=== PATIENT | male | born 1960 | race Two or more races ===

== ENCOUNTER 2020-02-19 13:15 | Inpatient (IN) | payer MEDICAID, OTHER ==
[~2020-02-19] VITALS: Ht 175.3 cm; Wt 58.4 kg
[2020-02-19] MEDS ORDERED: SODIUM CHLORIDE 0.9% 500 ML IVB ONE (13:20)
[2020-02-19] MEDS ORDERED: MORPHINE SULFATE 4 MG/ML SYR/VIAL IV ONE (13:30)
[2020-02-19] MEDS ORDERED: ONDANSETRON HCL 4 MG/2 ML VIAL IV ONE (13:30)
[2020-02-19 14:09] LABS: Basophils # (auto) 0 10 ^3/uL (0-0.2); Basophils % (auto) 0.3 % (0.0-2.0); Eosinophils # (auto) 0 10 ^3/uL (0-0.8); Eosinophils % (auto) 0.1 % (0.0-7.0); Hematocrit 50.9 % (41.0-53.0); Hemoglobin 17.3 g/dL (13.5-17.5); Lymphocytes # (auto) 0.6 10 ^3/uL (0.4-5.4); Lymphocytes % (auto) 19.1 % (10.0-50.0); Mean Corpuscular Hgb Conc. 33.9 g/dL (32.0-36.0); Mean Corpuscular Volume 94.2 fL (80.0-100.0); Monocytes # (auto) 0.6 10 ^3/uL (0-1.3); Monocytes % (auto) 17.9 % (0.0-12.0); Neutrophils % (auto) 62.6 % (37.0-80.0); Platelet Count (auto) 377 10^3/uL (140-450); Red Cell Distribution Width 12.9 % (11.8-14.3); White Blood Cell 3.2 10^3/uL (4.4-10.8)
[2020-02-19 14:29] LABS: Albumin 3.9 g/dL (3.4-5.0); Calcium 9.3 mg/dL (8.5-10.1); INR 1.03 (0.9-1.15); Potassium 4.9 mmol/L (3.5-5.1)
[2020-02-19 14:32] LABS: BUN/Creatinine Ratio 29.7; Bilirubin, Total 1.2 mg/dL (0.2-1.0)
[2020-02-19] MEDS ORDERED: IOHEXOL 300 MG/ML 100ML BOTTLE IJ ONE (14:51)
[2020-02-19] MEDS ORDERED: PIPERACILLIN-TAZOB 3.375GM 100 ML IV ONE (15:45)
[2020-02-19] MEDS ORDERED: metroNIDAZOLE 500MG/100ML 100 ML IV ONE (15:45)
[2020-02-19] MEDS ORDERED: NITROGLYCERIN 0.4 MG SL TAB SL PRN (18:15)
[2020-02-19] MEDS ORDERED: ACETAMINOPHEN 325 MG TAB PO PRN (18:15)
[2020-02-19] MEDS ORDERED: MORPHINE SULF INJ 2 MG/ML SYRINGE 1ML IV PRN (18:15)
[2020-02-19] MEDS ORDERED: ONDANSETRON HCL 4 MG/2 ML VIAL IV PRN (18:15)
[2020-02-19] MEDS ORDERED: HYDROcodone-ACET 5/325MG TAB PO PRN (18:15)
[2020-02-19] MEDS ORDERED: METOPROLOL TARTRATE 1MG/1ML-5ML VIAL IV ONE (18:15)
[2020-02-19] MEDS ORDERED: LABETALOL HCL 5 MG/ML 4ML SYRINGE IV PRN (18:15)
[2020-02-19] MEDS ORDERED: METOPROLOL TARTRATE 1MG/1ML-5ML VIAL IV PRN (18:15)
[2020-02-19] MEDS: SODIUM CHLORIDE 0.9% 1,000 ML IV SCH ×3 (18:43→22:45)
[2020-02-19 19:54] LABS: Lactic Acid w/Reflex 2.9 mmol/L (0.4-2.0)
[2020-02-19 20:26] VITALS: BP 175/110
--- NOTE | 2020-02-19 20:26 | NUR ---
Pt brought to [facility], room 291B. No s/s of SOB. Pt complains of severe abdominal pain. Will administer pain medication as prescribed. Pt oriented to unit, bed in lowest position, bed rails raised x2, call light within reach. Pt educated on POC, pt verbalized understanding. Will continue to monitor Q1h and PRN.
[2020-02-19] MEDS: MORPHINE SULF INJ 2 MG/ML SYRINGE 1ML IV PRN (21:46)
[2020-02-19 22:00] VITALS: BP 175/110
[2020-02-19] MEDS: cloNIDine HCL 0.1 MG TAB PO PRN (23:28)
--- NOTE | 2020-02-20 00:47 | NUR ---
NG Placement After two attempts by other nurses, NG tube placed by KIMBERLY Dyer. Size 14 tube, measuring at 68 at the left nare. Pt tolerated fairly well. Portable CXR ordered for placement confirmation. Will continue to monitor and carry out any new orders received.
[2020-02-20] MEDS: HYDROmorphone HCL 2 MG/ML VL IV PRN ×4 (01:03→18:47)
[2020-02-20] MEDS: LABETALOL HCL 5 MG/ML 4ML SYRINGE IV PRN ×2 (02:48→09:17)
[2020-02-20] MEDS: MORPHINE SULF INJ 2 MG/ML SYRINGE 1ML IV PRN ×2 (04:19→08:37)
[2020-02-20 05:00] VITALS: BP 184/112
--- NOTE | 2020-02-20 05:10 | NUR ---
Hospitalist paged for high BP and orders. Awaiting call back.
--- NOTE | 2020-02-20 06:07 | NUR ---
Pt own meds Pt states that he takes Trazadone, Attivan, Zoloft, Risperidone, Flomax. Pt states he is does not know the dosages. Addendum: 02/20/20 at 0610 by Fabiana Oliva RN RN No phone number provided in order to verify medications.
--- NOTE | 2020-02-20 07:30 | NUR ---
Opening Shift Note Assumed care of patient, who is alert and oriented x4. Respirations are even and unlabored. No S/S of distress/SOB. Patient is reporting 10/10 abdominal pain. Will medicate per MD orders. NGT to L nares is set to LCS. Noted dark green fluid in suction canister. Bed is low, locked with 2x side rails up. Call light is within reach. Instructed on POC and to call for assist PRN, will continue to monitor for changes Q1hr and PRN.
[2020-02-20 08:51] LABS: Urine WBC None Seen /hpf (0 - 3)
[2020-02-20 08:55] LABS: Urine Bacteria NONE SEEN /hpf (None Seen); Urine Blood Negative /uL (Negative)
[2020-02-20 09:00] VITALS: BP 187/118
[2020-02-20 09:29] LABS: Amphetamine Screen, Urine POSITIVE (NEGATIVE); Barbiturate Scree,Urine NEGATIVE (NEGATIVE); Benzodiazephine Screen, Urine NEGATIVE (NEGATIVE); Cannabinoid Screen, Urine NEGATIVE (NEGATIVE); Cocaine Screen, Urine NEGATIVE (NEGATIVE); Opiate Scree,Urine POSITIVE (NEGATIVE); Phencyclidine Screen, Urine NEGATIVE (NEGATIVE)
--- NOTE | 2020-02-20 09:45 | NUR ---
Blood pressure BP:187/118 HR:94 Administered Labetalol PRN per MD orders. Patient is asymptomatic at this time. Patient is only c/o abdominal pain secondary to SBO. Received new orders from Dr. Peterson to upgrade patient to [facility] for Labetalol drip, echocardiogram and kidney doppler. Will carry out orders. Patient to be transferred to [facility]. Will continue to monitor.
[2020-02-20] MEDS: SODIUM CHLORIDE 0.9% 1,000 ML IV SCH ×2 (09:52→20:59)
[2020-02-20] MEDS ORDERED: LABETALOL INJECTION 250 MG in SODIUM CHL 0.9% 200 ML IV ONE (10:15)
[2020-02-20 10:28] LABS: Basophils # (auto) 0 10 ^3/uL (0-0.2); Basophils % (auto) 0.2 % (0.0-2.0); Eosinophils # (auto) 0 10 ^3/uL (0-0.8); Hematocrit 46.6 % (41.0-53.0); Hemoglobin 15.8 g/dL (13.5-17.5); Lymphocytes # (auto) 0.2 10 ^3/uL (0.4-5.4); Lymphocytes % (auto) 6.4 % (10.0-50.0); Mean Corpuscular Hemoglobin 32.3 pg (28.0-32.0); Mean Corpuscular Hgb Conc. 33.9 g/dL (32.0-36.0); Mean Corpuscular Volume 95.1 fL (80.0-100.0); Monocytes # (auto) 0.3 10 ^3/uL (0-1.3); Monocytes % (auto) 9.5 % (0.0-12.0); Neutrophils # (auto) 2.9 10 ^3/uL (1.6-8.6); Neutrophils % (auto) 83.9 % (37.0-80.0); Platelet Count (auto) 337 10^3/uL (140-450); Red Cell Distribution Width 12.8 % (11.8-14.3); White Blood Cell 3.5 10^3/uL (4.4-10.8)
[2020-02-20 10:47] LABS: Albumin 3.7 g/dL (3.4-5.0); Calcium 9.2 mg/dL (8.5-10.1); Magnesium 2.6 mg/dL (1.6-2.6)
[2020-02-20 10:52] LABS: BUN/Creatinine Ratio 32.1; Bilirubin, Total 1.1 mg/dL (0.2-1.0); Phosphorus 4.3 mg/dL (2.5-4.90); Total Protein 8.6 g/dL (6.4-8.2)
[2020-02-20 11:22] LABS: Lactic Acid w/Reflex 2.4 mmol/L (0.4-2.0)
[2020-02-20] MEDS: cloNIDine HCL 0.1 MG TAB PO PRN (12:51)
[2020-02-20 13:00] VITALS: BP 179/114
[2020-02-20 13:28] VITALS: BP 150/114
--- NOTE | 2020-02-20 14:35 | NUR ---
Spoke to Kirill Joel MD on patients current status. New orders received. Read back and verified. Patient to have small bowl series with gastrografin tomorrow. (SEE ORDERS). Will continue to monitor.
--- NOTE | 2020-02-20 14:43 | NUR ---
Kirill Guerrero rounding Updating patient on POC.
--- NOTE | 2020-02-20 15:43 | NUR ---
Dr. Peterson rounding Updating patient on POC. New orders received for Metoprolol IV and Clonidine patch (see orders). Holding Labetalol drip/[facility] transfer at this time.
[2020-02-20 15:45] VITALS: BP 152/115
[2020-02-20] MEDS ORDERED: METOPROLOL TARTRATE 1MG/1ML-5ML VIAL IV PRN ×2 (15:45)
[2020-02-20 16:44] VITALS: BP 147/112
[2020-02-20] MEDS ORDERED: cloNIDine 0.2 mg/24hr 7DAY PATCH TD SCH (17:00)
--- NOTE | 2020-02-20 19:30 | NUR ---
Opening Shift Note Assumed care of patient, patient asleep / resting at this time. No S/S of distress/SOB or pain. Will continue to monitor for changes Q1hr and PRN.
--- NOTE | 2020-02-20 21:30 | NUR ---
Patient BP is 101/69 and HR is 107. Patient is resting comfortably with no c/o distress or pain at this time. Will continue to monitor.
--- NOTE | 2020-02-20 23:25 | NUR ---
Patient attempted to have BM on bedside commode. No BM noted but NG tube accidentally removed. Will attempt NG at a later time.
[2020-02-21] VITALS (38 sets, daily range): BP systolic 57–152; BP diastolic 27–88
--- NOTE | 2020-02-21 00:19 | NUR ---
NGT successfully replaced. There is still dark liquid output. Patient on LCS as ordered. Patient tolerated well.
--- NOTE | 2020-02-21 00:44 | NUR ---
NGT output: beginning of shift 300ml corrina. After reinserting NGT it was at 600ml on LCS.
--- NOTE | 2020-02-21 00:45 | NUR ---
Patient stated that he was passing gas and wanted to sit on a commode. Patient assisted to commode with standby assistance. Upon returning patient was slumped over and difficult to arouse. Patient immediately placed back on bed. Patient was still very slow to arouse and VS taken immediately. Initial BP reading was 44/28. Patient respirations also in the 30's and in respiratory distress. Called for Code assist.
[2020-02-21] MEDS ORDERED: LORazepam 2MG/ML-1ML VIAL ONE (01:10)
[2020-02-21] MEDS ORDERED: FLUMAZENIL 0.1 MG/ML INJ 10ML MDV IV ONE (01:43)
--- NOTE | 2020-02-21 02:20 | NUR ---
Patient transferred to ICU/CL Bed 204 and report given to Dorina HARRIS.
--- NOTE | 2020-02-21 02:30 | NUR ---
ICU transfer from room 291: Patient is A&Ox1-2; confusion present. Currently on 10 L O2 via simple mask; BP currently SBP 50s; NS bolus running at this time per code assist hospitalist orders from med/surg unit. IV 22 g in right hand. New IV started in left ankle 22 g. Skin intact; generalized bruising present. Pupils are nonreactive to light/ 3mm size; facial symmetry present with equal strength BUE/BLE. Currently bedrest. NGT attached to LIS: dark red output new per previous RN when called for update. BS for 132; no output; patient refusing daíz catheter at this time.
[2020-02-21] MEDS ORDERED: NOREPINEPHRINE 8 MG/250ML KIT 250 ML IV ONE (02:42)
[2020-02-21] MEDS: NOREPINEPHRINE 8 MG/250ML KIT 250 ML IV SCH ×3 (03:00→13:29)
[2020-02-21] MEDS: SODIUM CHLORIDE 0.9% 1,000 ML IV SCH (03:30)
[2020-02-21 03:57] LABS: Hemoglobin 12.5 g/dL (13.5-17.5)
[2020-02-21 04:01] LABS: Basophils # (auto) 0 10 ^3/uL (0-0.2); Basophils % (auto) 0.2 % (0.0-2.0); Eosinophils # (auto) 0 10 ^3/uL (0-0.8); Eosinophils % (auto) 0.1 % (0.0-7.0); Hematocrit 37.8 % (41.0-53.0); Lymphocytes # (auto) 0.3 10 ^3/uL (0.4-5.4); Lymphocytes % (auto) 9.7 % (10.0-50.0); Mean Corpuscular Hemoglobin 31.8 pg (28.0-32.0); Mean Corpuscular Hgb Conc. 33.1 g/dL (32.0-36.0); Mean Corpuscular Volume 96.1 fL (80.0-100.0); Monocytes # (auto) 0.1 10 ^3/uL (0-1.3); Monocytes % (auto) 3.5 % (0.0-12.0); Neutrophils # (auto) 2.4 10 ^3/uL (1.6-8.6); Neutrophils % (auto) 86.5 % (37.0-80.0); Nucleated Red Blood Cells % 0.1 %; Platelet Count (auto) 258 10^3/uL (140-450); Red Blood Cells 3.93 10^6/uL (4.5-5.90); Red Cell Distribution Width 12.9 % (11.8-14.3); White Blood Cell 2.8 10^3/uL (4.4-10.8)
[2020-02-21] MEDS: HYDROmorphone HCL 2 MG/ML VL IV PRN (04:09)
--- NOTE | 2020-02-21 04:09 | NUR ---
PAIN: Pt very restless, moaning. Pt c/o pain in abdomen at level 10/10. Pt requesting pain medication. Pt medicated w/ Dilaudid 0.5mg slow IVP as per order. To continue to monitor pt.
[2020-02-21 04:15] LABS: BUN/Creatinine Ratio 21.5; Calcium 7.4 mg/dL (8.5-10.1); Potassium 4.4 mmol/L (3.5-5.1)
[2020-02-21] MEDS ORDERED: EPINEPHrine HCL 250 ML IV ONE (06:16)
[2020-02-21] MEDS ORDERED: ROCURONIUM 10MG/ML 10ML VIAL IV ONE ×5 (06:25→16:50)
[2020-02-21] MEDS ORDERED: ETOMIDATE (2MG/ML) 20ML VIAL IV ONE (06:25)
[2020-02-21] MEDS ORDERED: SUCCINYLCHOLINE CHLORIDE 20 MG/ML 10ML VIAL IV ONE (06:25)
--- NOTE | 2020-02-21 06:30 | NUR ---
Emergent Intubation: Patient ALOC increased; unresponsive to painful stimuli; RR in 40s-50s; unable to obtain a BP; HR in 120s; unable to obtain oxygen saturation. RT unable to obtain STAT ABG related to low BP. Dr. Infante paged by airworthiness inspector for emergent intubation for airway protection. 20 ml of Etomidate given for intubation prep. ET size 8.0/23 @ lip inserted. Vent settings: AC rate 16, vT 500, PEEP 5, FiO2 set at 100% until oxygen saturation obtain. Right IJ TLC also inserted for hemodynamic drips. Levophed maxed at 30; Epinephrine maxed; new orders received for Zac per protocol/2 units of PRBCs & 1 unit of FFP for active bleeding/ Hetastarch 500 ml/ 1 liter bolus (for total of 3 L since transfer)/ protonix drip per protocol/ STAT type and screen. Farooq inserted per ICU protocol 16 F with 10 ml balloon. NGT still has dark red output total since 0200 is 200 ml.
[2020-02-21] MEDS ORDERED: EPINEPHrine HCL 250 ML IV SCH (06:36)
[2020-02-21] MEDS: MIDAZOLAM DRIP 50 mg/50mL 50 ML IV SCH ×3 (06:36→15:24)
[2020-02-21] MEDS: PANTOPRAZOLE 40mg/50ML NS AE 50 ML IV SCH ×2 (06:45→10:04)
[2020-02-21] MEDS: PHENYLEPHRINE IV 500 ML IV ONE ×2 (06:45→06:52)
[2020-02-21] MEDS ORDERED: HETASTARCH 500 ML IV ONE (06:45)
[2020-02-21] MEDS ORDERED: PANTOPRAZOLE 40mg/50ML NS AE 50 ML IV ONE (07:13)
[2020-02-21] MEDS ORDERED: VASOPRESSIN 50 UNITS in D5W 5% 247.5 ML IV SCH ×2 (08:00→13:00)
[2020-02-21] MEDS: PHENYLEPHRINE IV 250 ML IV SCH ×2 (08:13→08:55)
[2020-02-21] MEDS ORDERED: SODIUM CHLORIDE 0.9% 3,000 ML IV ONE (08:15)
[2020-02-21 08:42] LABS: INR 1.3 (0.9-1.15); Partial Thromboplastin Time 29.3 sec (23.64-32.05)
--- NOTE | 2020-02-21 10:57 | NUR ---
Leslyid specimen obtained and carried to the lab by the RN.
--- NOTE | 2020-02-21 10:59 | NUR ---
Xray at bedside for STAT KUB.
[2020-02-21] MEDS ORDERED: GASTROGRAFIN 120 ML SOL ONE (11:06)
--- NOTE | 2020-02-21 11:15 | NUR ---
Dr. Peterson at bedside.
[2020-02-21] MEDS: PHENYLEPHRINE INJ 40 MG in SODIUM CHL 0.9% 250 ML IV SCH ×2 (11:32→15:23)
--- NOTE | 2020-02-21 11:34 | NUR ---
Respirations are in 30s-40s; unable to obtain a BP; HR in 130s. Dr. Peterson, made aware. Orders received to increase patient's Versed gtt to 15mg/hr and to start patient on Zac double concentration per protocol.
[2020-02-21 11:58] LABS: Hemoglobin 11.4 g/dL (13.5-17.5); Platelet Count (auto) 233 10^3/uL (140-450)
[2020-02-21 11:59] LABS: Hematocrit 34.4 % (41.0-53.0); Mean Corpuscular Hemoglobin 32.3 pg (28.0-32.0); Mean Corpuscular Hgb Conc. 33.2 g/dL (32.0-36.0); Mean Corpuscular Volume 97.3 fL (80.0-100.0); Red Blood Cells 3.54 10^6/uL (4.5-5.90); Red Cell Distribution Width 13.2 % (11.8-14.3)
[2020-02-21 12:03] LABS: White Blood Cell 1.6 10^3/uL (4.4-10.8)
[2020-02-21 12:09] LABS: Albumin 1.6 g/dL (3.4-5.0); Calcium 6.4 mg/dL (8.5-10.1)
[2020-02-21 12:13] LABS: Lactic Acid w/Reflex 5.5 mmol/L (0.4-2.0)
[2020-02-21 12:17] LABS: BUN/Creatinine Ratio 18.1; Bilirubin, Total 0.6 mg/dL (0.2-1.0); Total Protein 4.2 g/dL (6.4-8.2)
--- NOTE | 2020-02-21 12:43 | NUR ---
Dr. Medina at bedside.
--- NOTE | 2020-02-21 12:47 | NUR ---
Unable to obtain BP. Dr. Medina at bedside, orders received to increase Levophed to the max dose and start patient on Vasopressin.
[2020-02-21 12:54] LABS: Basophils % (manual) 0 (0.0-2.0); Blast Cells 0; Eosinophils % (manual) 0 (0-7); Promyelocytes % 0; Reactive Lymphocytes 0
[2020-02-21 13:12] LABS: Band Neutrophils % (manual) 18; Lymphocytes % (manual) 28 (10.0-50.0); Metamyelocytes % 20; Monocytes % (manual) 14 (0-12); Myelocytes % 13
--- NOTE | 2020-02-21 13:15 | NUR ---
Dr. Guerrero at bedside.
--- NOTE | 2020-02-21 13:39 | NUR ---
Dr. Evans at bedside for A line insertion.
[2020-02-21] MEDS ORDERED: MORPHINE SULFATE ONE (14:25)
[2020-02-21] MEDS ORDERED: MIDAZOLAM HCL 1MG/1ML-2 ML VIAL ONE (14:25)
[2020-02-21] MEDS ORDERED: fentaNYL CITRATE 10 ML ONE (14:25)
[2020-02-21] MEDS ORDERED: fentaNYL CITRATE 100 MCG/2 ML VL ONE (14:25)
[2020-02-21] MEDS ORDERED: EPINEPHrine HCL 1 MG/10 ML SYRG ONE (14:27)
--- NOTE | 2020-02-21 14:28 | NUR ---
Dr. Sr at bedside.
[2020-02-21] MEDS ORDERED: CALCIUM CHLOR(10%) 100MG/ML 10ML SYRINGE IV ONE (14:29)
--- NOTE | 2020-02-21 14:35 | NUR ---
First unit of PRBC infusing per protocol.
--- NOTE | 2020-02-21 15:09 | NUR ---
OR team at bedside.
--- NOTE | 2020-02-21 15:17 | NUR ---
Patient transported to the OR with the OR team.
[2020-02-21] MEDS ORDERED: ceFAZolin 1GM VL ONE ×3 (16:15→16:54)
[2020-02-21] MEDS ORDERED: levoFLOXacin 500MG 100 ML IV ONE (16:17)
[2020-02-21] MEDS ORDERED: cefTRIAXone SOD 1,000 MG VL ONE (16:18)
[2020-02-21] MEDS ORDERED: fentaNYL CITRATE 5 ML ONE (16:32)
--- NOTE | 2020-02-21 16:36 | NUR ---
S/W DR. ANGEL AND UPDATED THAT THE PATIENT WENT TO SURGERY AT ABOUT 15:30; WILL CALL BACK WHEN PT. OUT OF OR.
[2020-02-21] MEDS ORDERED: HYDROmorphone HCL 2 MG/ML VL ONE (16:58)
[2020-02-21] MEDS ORDERED: ALBUMIN 25% 100 ML IV ONE (17:17)
--- NOTE | 2020-02-21 17:50 | NUR ---
PT. BACK FROM OR; SEE INTERVENTIONS FOR ASSESSMENT; SEE IV SPREADSHEET FOR GTTS; PT. VITAL SIGNS STABLE WITH EXCEPTION OF BP IN 80'S AND WILL TITRATE VASOPRESSORS ACCORDINGLY TO RX; PT. IS S/P EXPL-LAP WITH PROX. AND DISTAL BOWEL RESECTION/ILEOSTOMY PLACED/SIRIA DRAIN TO LT. ABD. AND DRAINING MINIMAL SANGUINOS DRAINAGE; PT. ALSO S/P APPENDECTOMY; WILL CONT. TO MONITOR.
--- NOTE | 2020-02-21 18:10 | NUR ---
DR. MORENO AT BEDSIDE AND SPEAKING WITH OR TEAM AND RECEIVING UPDATE ON SURGERY; ASKED THAT I GET IN TOUCH WITH DR. ANGEL AND GET PT. STARTED ON ZOSYN/VANCO SOON POSSIBLE.
[2020-02-21] MEDS ORDERED: fentaNYL Drip 2500mCg/250mlNS 250 ML IV SCH (19:38)
--- NOTE | 2020-02-21 19:40 | NUR ---
S/W DR. ANGEL VIA TELEPHONE AND RECEIVED ORDERS FOR ANTIBIOTICS/PAIN MED/ AND AM LABS/ ABG/CXR FOR AM.
[2020-02-21] MEDS ORDERED: VANCOMYCIN 1GM/250ML 250 ML IV ONE (19:45)
[2020-02-21] MEDS ORDERED: VANCOMYCIN PER PHARMACY 0 MG IV SCH (19:45)
--- NOTE | 2020-02-21 23:00 | NUR ---
S/W DR. CALLAHAN AND UPDATED ON PT. CONDITION AND POOR PROGNOSIS.
[2020-02-21] MEDS ORDERED: SODIUM BICARBONATE 8.4% INJ 50ML SYRINGE ONE (23:12)
[2020-02-21] MEDS ORDERED: SODIUM BICARBONATE 8.4 % INJ 50ML VIAL IV ONE (23:30)
[2020-02-22] VITALS: BP 92/59
[2020-02-22] MEDS ORDERED: DEXTROSE 50% SYRINGE 50 ML IV ONE ×3 (00:02→02:35)
[2020-02-22] MEDS ORDERED: SODIUM BICARBONATE 8.4 % INJ 50ML VIAL IV ONE ×3 (00:15→02:00)
[2020-02-22] MEDS ORDERED: DEXTROSE (50%) 50ML SYRG IV ONE ×2 (00:15→12:19)
[2020-02-22] MEDS: PIPERACILLIN-TAZOB 3.375GM 100 ML IV SCH ×2 (00:30→06:00)
[2020-02-22] MEDS ORDERED: DEXTROSE 10% 1,000 ML IV ONE (01:55)
[2020-02-22 01:56] VITALS: BP 92/59
[2020-02-22 02:00] VITALS: BP 69/45
[2020-02-22] MEDS ORDERED: SODIUM BICARBONATE 50ML VIAL 150 ML in SOD CHL 0.45% 1,000 ML IV SCH (02:15)
[2020-02-22 03:00] LABS: Hematocrit 19.9 % (41.0-53.0); Platelet Count (auto) 42 10^3/uL (140-450)
[2020-02-22 03:03] LABS: Mean Corpuscular Hemoglobin 32.2 pg (28.0-32.0); Mean Corpuscular Hgb Conc. 29.6 g/dL (32.0-36.0); Mean Corpuscular Volume 108.9 fL (80.0-100.0); Red Blood Cells 1.83 10^6/uL (4.5-5.90); Red Cell Distribution Width 16.4 % (11.8-14.3)
[2020-02-22] MEDS ORDERED: DOPamine 1600MCG/ML D5W 250 ML IV ONE (03:07)
[2020-02-22 03:11] LABS: Hemoglobin 5.9 g/dL (13.5-17.5)
[2020-02-22 03:13] LABS: Basophils % (manual) 0 (0.0-2.0); Blast Cells 0; Promyelocytes % 0; Reactive Lymphocytes 0
[2020-02-22 03:14] LABS: Magnesium 2.3 mg/dL (1.6-2.6)
[2020-02-22 03:23] LABS: BUN/Creatinine Ratio 15.8; Bilirubin, Total 0.8 mg/dL (0.2-1.0); Total Protein 1.7 g/dL (6.4-8.2)
[2020-02-22 03:29] LABS: Lactic Acid w/Reflex 18.4 mmol/L (0.4-2.0)
[2020-02-22 03:40] VITALS: BP 46/33
[2020-02-22 03:53] VITALS: BP 48/33
--- NOTE | 2020-02-22 03:54 | NUR ---
CODE BLUE: PATIENT HEART RATE HAS BEEN DROPPING OVER THE LAST FEW HOURS; SBP DECREASING TO 50'S; PT. WENT INTO [facility] AND ROLA BAUTISTA CALLED; CPR STARTED IMMEDIATELY AND X1 EPI GIVEN IVP; SEE CODE BLUE SHEET FOR ALL DETAILS; PT. ON LEVOPHED GTT AT 30MCG/ VASOPRESSIN AT 0.07 UNITS/ OPAL GTT AT 180 MCG/ EPINEPHRINE GTT AT 10 MCG/ DOPAMINE AT 20MCG/ SODIUM BICARB DRIP AT 150ML/HR WITH 1/2 NS WITH X3 AMPS OF SODIUM BICARB.
[2020-02-22 03:57] LABS: Band Neutrophils % (manual) 18; Eosinophils % (manual) 1 (0-7); Lymphocytes % (manual) 35 (10.0-50.0); Metamyelocytes % 23; Monocytes % (manual) 1 (0-12); Myelocytes % 4
[2020-02-22 04:00] LABS: INR 2.93 (0.9-1.15)
[2020-02-22 04:09] LABS: Albumin 0.6 g/dL (3.4-5.0); Phosphorus 12.1 mg/dL (2.5-4.90); Potassium 8.5 mmol/L (3.5-5.1)
[2020-02-22 04:10] LABS: Partial Thromboplastin Time > 139.0 sec (23.64-32.05)
--- NOTE | 2020-02-22 05:11 | NUR ---
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 larsen then will call apigee developer back and the will become a apigee developer case.
--- NOTE | 2020-02-22 10:54 | NUR ---
BRANCH MANAGER [employer]INEE CLEARANCE Spoke to clinic supervisor, clearance number [id number].
--- NOTE | 2020-02-22 11:24 | NUR ---
Nutrition Assessment Notes Please refer to link for full assessment notes. Est Energy needs: 2201-6144 kcals (30-35 kcal/kgBW) d/t pt with Stage 4 CKD, no HD Est Protein needs: 35-44 gms/day (0.6-0.75 gm/kgBW) d/t pt with Stage 4 CKD, non-diabetic, no HD Will continue to monitor and reassess prn. Addendum: 02/22/20 at [address] Amended: Links added.
[2020-02-22] MEDS ORDERED: SODIUM BICARBONATE 8.4% INJ 50ML SYRINGE IV ONE (12:19)
[2020-02-22] MEDS ORDERED: CALCIUM CHLOR(10%) 100MG/ML 10ML SYRINGE IV ONE (12:19)
[2020-02-22] MEDS ORDERED: ATROPINE SULF 1 MG/10ml SYR IV ONE (12:19)
[2020-02-22] MEDS ORDERED: EPINEPHrine HCL 1 MG/10 ML SYRG IV ONE (12:19)
== END 2020-02-22 12:20 | disposition expired | DRG 230 ==
LOC: ER 13:15 → EDBD 13:15 → TELE 13:16 → TELE-WESTW 13:17 → CENTRAL 02-21 02:20 → CATH ICU 02-21 02:53 → ICU WEST 02-21 16:55
PROVIDERS: ADMIT Internal Medicine; ATTEND Internal Medicine
PROC: 02HV33Z Insertion of Infusion Device into Superior Vena Cava, Percutaneous Approach (ICD-10-PCS; 2020-02-21)
PROC: 0DBB0ZZ Excision of Ileum, Open Approach (ICD-10-PCS; 2020-02-21)
PROC: 0D1B0Z4 Bypass Ileum to Cutaneous, Open Approach (ICD-10-PCS; 2020-02-21)
PROC: 30233N1 Transfusion of Nonautologous Red Blood Cells into Peripheral Vein, Percutaneous Approach (ICD-10-PCS; 2020-02-21)
PROC: 5A1945Z Respiratory Ventilation, 24-96 Consecutive Hours (ICD-10-PCS; 2020-02-21)
PROC: 0BH17EZ Insertion of Endotracheal Airway into Trachea, Via Natural or Artificial Opening (ICD-10-PCS; 2020-02-21)
PROC: 30233K1 Transfusion of Nonautologous Frozen Plasma into Peripheral Vein, Percutaneous Approach (ICD-10-PCS; principal; 2020-02-21 15:20)
PROC: 5A12012 Performance of Cardiac Output, Single, Manual (ICD-10-PCS; 2020-02-22)
DX: K55.9 Vascular disorder of intestine, unspecified (principal); K56.609 Unspecified intestinal obstruction, unspecified as to partial versus complete obstruction; R57.1 Hypovolemic shock; J21.9 Acute bronchiolitis, unspecified; I50.42 Chronic combined systolic (congestive) and diastolic (congestive) heart failure; I16.0 Hypertensive urgency; E87.1 Hypo-osmolality and hyponatremia; I95.9 Hypotension, unspecified; N17.9 Acute kidney failure, unspecified; D75.89 Other specified diseases of blood and blood-forming organs; I96 Gangrene, not elsewhere classified; F31.9 Bipolar disorder, unspecified; Z03.818 Encounter for observation for suspected exposure to other biological agents ruled out
CPT/HCPCS: 36415; 36600; 71045; 74018; 74177; 74250; 80048; 80053; 80307; 81001; 82805; 82962; 83605; 83690; 83735; 84100; 85007; 85025; 85027; 85610; 85730; 86850; 86900; 86901; 86920; 87070; 87077; 87186; 87205; 88302; 93005; 93306; 93975; 94002; 96361; 96365; 96368; 96375; G0378; J0171; J0330; J0690; J0696; J1956; J2250; J2405; J2543; J3490; J7060; P9047